=== PATIENT | female | born 1955 | race Caucasian/White ===

== ENCOUNTER 2019-02-15 11:34 | Emergency (ER) | payer MEDICAID ==
[~2019-02-15] VITALS: Ht 157.5 cm; Wt 48.9 kg
--- NOTE | 2019-02-15 12:30 | NUR ---
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
[2019-02-15 12:36] LABS: ANION GAP 8 mmol/L (5-15); CALCIUM 8.1 mg/dL (8.5-10.1); CHLORIDE 114 mmol/L (98-107)
--- NOTE | 2019-02-15 12:37 | NUR ---
PT PRESENTS TO ED WITH C/O DIZZINESS AND BILATERAL SWELLING AND SORENESS OF LEGS PRESENT FOR LAST 4-5 YEARS. PT STATES SHE HAS HAD PERIODIC SYNCOPE FOR LAST 4-5 YEARS WELL. PT STATES SYMPTOMS ARE NOT ESCALATING AT THIS TIME. PT HAS RECENTLY MOVED TO [place] FROM [place]. PT STATES SWELLING OF LEGS IS WORSE AFTER WALKING, NO EDEMA OR ERYTHEMA NOTED TO EITHER LEG. EKG TAKEN IN TRIAGE. PT IS A&O, RESPS EVEN AND UNLABORED, GAIT STEADY. WONG ROONEY AT BEDSIDE TO ASSESS PT AT THIS TIME.
[2019-02-15 12:44] LABS: ALANINE AMINOTRANSFERASE 27 U/L (12-78); ALKALINE PHOSPHATASE 271 U/L (45-117); BILIRUBIN,TOTAL 4.7 mg/dL (0.2-1.0); CREATININE 0.67 mg/dL (0.55-1.02); TOTAL PROTEIN 5.7 g/dL (6.4-8.2)
--- NOTE | 2019-02-15 12:47 | NUR ---
per WONG Lewis, no UA needed.
[2019-02-15] MEDS ORDERED: albuterol inhaler INH (12:50)
[2019-02-15] MEDS ORDERED: [UNRECOGNIZED DRUG - OTHER] PO (12:50)
[2019-02-15 12:51] LABS: MEAN CORPUSCULAR HEMOGLOBIN 34.1 pg (27.0-34.8); MEAN CORPUSCULAR HGB CONC 33.7 g/dL (32.4-35.8); MEAN CORPUSCULAR VOLUME 101.2 fL (80-100); MEAN PLATELET VOLUME 9.8 fL (7.4-10.4); PLATELET COUNT 65 x10^3/uL (130-400); RED BLOOD COUNT 3.71 x10^6/uL (3.82-5.3); RED CELL DISTRIBUTION WIDTH 15.9 % (9.6-15.2)
[2019-02-15] MEDS ORDERED: IBUP-1484 PO (12:51)
[2019-02-15 12:52] LABS: MD YES
[2019-02-15 12:54] LABS: <PLATELET ESTIMATE> DECREASED; <PLT MORPHOLOGY> NORMAL PLT MORPH; ANISOCYTOSIS 1+; EOS#(MANUAL) 0.35 x10^3/uL (0.0-0.4); EOS% (MANUAL) 6 % (1-7); LYMPH#(MANUAL) 2.89 x10^3/uL (1-3.4); LYMPHS% (MANUAL) 49 % (22-44); MONOS#(MANUAL) 0.24 x10^3/uL (0.3-2.7); MONOS% (MANUAL) 4 % (2-9); REACTIVE LYMPHS # (MANUAL) 0.12 x10^3/uL (0-0); REACTIVE LYMPHS % (MANUAL) 2 % (0-0); SEGS% (MANUAL) 39 % (42-75)
[2019-02-15 13:07] LABS: TROPONIN I < 0.015 ng/mL (0.000-0.045)
[2019-02-15 13:28] VITALS: BP 141/71
--- NOTE | 2019-02-15 13:38 | NUR ---
WONG Lewis at bedside to update pt with results and POC.
--- NOTE | 2019-02-15 13:58 | NUR ---
pt given dc instructions and script, educated regarding albuterol rx. pt a&o, resps even and unlabored. pt has no complaint at dc. pt amb to dc desk acccompanied by daughter, consuelo riley at dc.
== END 2019-02-15 14:00 | disposition home or self-care (01) ==
LOC: ED 13:54
DX: J44.1 Chronic obstructive pulmonary disease with (acute) exacerbation (principal); R91.1 Solitary pulmonary nodule; R60.0 Localized edema; F17.210 Nicotine dependence, cigarettes, uncomplicated
CPT/HCPCS: 36415; 71046; 80053; 83880; 84484; 85025; 93005; 99284